=== PATIENT | female | born 1985 | race African-American/Black ===

== ENCOUNTER 2022-05-14 00:47 | Day surgery (SDC) | payer BC, SELFPAY ==
[2022-04-16 13:04] VITALS: BMI 35.5
--- NOTE | 2022-04-16 13:26 | PC.NURSE ---
Report to the Outpatient Waiting Room, entrance under the green pavilion located off [facility], at 0600 on 04-23-2022. OR Time: 0730. - You and your visitor will be asked a series of questions to screen for COVID 19 for your protection. - Only one visitor is allowed at this time. - The patient visitor is requested to leave or wait in car when not with patient. - A mask is required within the hospital. Patients may have clear liquids (water, carbonated beverages, clear teas, apple juice) until 3 hours prior to surgery with a maximum of 20 ounces. 0430 - No food from midnight until time of surgery - Infants may have breast milk until 4 hours before surgery, infant formula 6 hours prior to surgery. - Children will be allowed to drink immediately following surgery. If applicable, please bring a bottle or sippy cup to assist with drinking. Juice, water, soda, and popsicles are readily available. For infants on formula, please bring formula the day of surgery. Pacifiers are allowed. Take the following medications with a SIP of water the morning of surgery: None Bring inhaler Medications to discontinue per physician: N/A Please no make-up, nail pitcairn islander, hairspray, perfume, deodorant, or body powder the day of surgery. No jewelry (including any body piercings) or valuables the day of surgery, leave them at home. Please take a shower or bath the night before, or the morning of, surgery with an antibacterial soap. Wear comfortable, loose fitting clothing. Children are encouraged to wear pajamas. - Jewelry must be removed prior to entering the operating room. Rings and piercings that are not removed may be cut off. - The hospital will not accept responsibility for valuables. - Please leave all valuables, including medications, at home the day of surgery. If you are going home after surgery, a licensed substitute bus driver must drive you home. - NO public transportation without another adult. - We recommend that an adult stay with you for 24 hours following discharge. - We also recommend that you do not drive, make important decision, drink alcoholic beverages, or take any drugs that were not prescribed by your health care provider for at least 24 hours after your discharge time. For Pediatric surgeries, we recommend two adults accompany the child home (only one inside the building at this time). Follow any additional instructions given to you from your surgeon. If you or anyone in your household have experienced Covid symptoms in the past week, please notify your surgeon or the nurse liaison at the phone number below for possible testing. Telephone instructions given to Minerva Carroll and asked if any additional questions and then verbalized understanding. Patient advised to call surgeon office or pre surgery nurse liaison [phone] if any additional questions.
--- NOTE | 2022-05-10 14:48 | PC.NURSE ---
Report to the Outpatient Waiting Room, entrance under the green pavilion located off [facility], at time _0600 on date 05/14/22 . OR Time: __729 . - You and your visitor will be asked a series of questions to screen for COVID 19 for your protection. - Only one visitor is allowed at this time. - The patient visitor is requested to leave or wait in car when not with patient. - A mask is required within the hospital. Patients may have clear liquids (water, carbonated beverages, clear teas, apple juice) until 3 hours prior to surgery with a maximum of 20 ounces. - No food from midnight until time of surgery - Infants may have breast milk until 4 hours before surgery, infant formula 6 hours prior to surgery. - Children will be allowed to drink immediately following surgery. If applicable, please bring a bottle or sippy cup to assist with drinking. Juice, water, soda, and popsicles are readily available. For infants on formula, please bring formula the day of surgery. Pacifiers are allowed. Take the following medications with a SIP of water the morning of surgery: ___ALBUTEROL INHALER Medications to discontinue per physician N/A Date to take last dose N/A Please no make-up, nail danish, hairspray, perfume, deodorant, or body powder the day of surgery. No jewelry (including any body piercings) or valuables the day of surgery, leave them at home. Please take a shower or bath the night before, or the morning of, surgery with an antibacterial soap. Wear comfortable, loose fitting clothing. Children are encouraged to wear pajamas. - Jewelry must be removed prior to entering the operating room. Rings and piercings that are not removed may be cut off. - The hospital will not accept responsibility for valuables. - Please leave all valuables, including medications, at home the day of surgery. If you are going home after surgery, a licensed bobcat driver/labor must drive you home. - NO public transportation without another adult. - We recommend that an adult stay with you for 24 hours following discharge. - We also recommend that you do not drive, make important decision, drink alcoholic beverages, or take any drugs that were not prescribed by your health care provider for at least 24 hours after your discharge time. For Pediatric surgeries, we recommend two adults accompany the child home (only one inside the building at this time). Follow any additional instructions given to you from your surgeon. If you or anyone in your household have experienced Covid symptoms in the past week, please notify your surgeon or the nurse liaison at the phone number below for possible testing. Telephone instructions given to __JACKSON and asked if any additional questions and then verbalized understanding. Patient advised to call surgeon office or pre surgery nurse liaison [phone] if any additional questions.
--- NOTE | 2022-05-10 14:50 | PC.NURSE ---
PT STATES NO CHANGE IN HEALTH SINCE PREOP INTERVIEW ON 04/16/22 EXCEPT POSITIVE COVID DX. PT STATES IS WELL NOW. PREOP INSTRUCTIONS GIVEN TO PT
--- NOTE | 2022-05-13 17:20 | P.HP_ITS ---
H&P: HPI History of Present Illness Date/Time: 05/13/22 17:20 Chief Complaint: septal perforation crusting Narrative: patient presents for planned surgical procedure no change in symptoms no change in history Review of Systems Review of Systems: All systems reviewed & are unremarkable except as noted in HPI and below PMFSH Family History Family History Mother Alcoholism Lung cancer Depression Grandparent Diabetes mellitus Hypertension Social History Social History Smoking status: Never smoker Second hand tobacco smoke exposure: No Alcohol intake: never Substance use: never Substance use type: does not use Living arrangements: with family Spiritual care concerns: No Meds Home Medications and Allergies Home Medications Medication Instructions Recorded Confirmed Type albuterol sulfate 90 mcg/actuation 1 puff inhalation Q4H PRN 10/05/21 05/10/22 History aerosol inhaler Shortness Of Breath Or Wheezing Allergies Allergy/AdvReac Type Severity Reaction Status Date / Time cyclobenzaprine Allergy Intermediate Itching Verified 05/10/22 14:47 tramadol Allergy Intermediate Itching Verified 05/10/22 14:47 Exam Narrative: normal ENT exam anterior based septal perforation Assessment and Plan Assessment and plan (1) Nasal crusting: Code(s): J34.89 - Other specified disorders of nose and nasal sinuses Status: Acute Assessment and Plan: plan is for the OR endoscopic assisted closure of nasal septal perforation likely anterior ethmoidal flap. Will need endoscopic set up no micro debrider as will need endoscopic needle tip Bovie extended. Will need lidocaine Afrin- soaked pledgets and sinus instruments. Risks were discussed including 50-80% chance of failure postoperative crusting bleeding need for weeks of splint placement. Patient voiced understanding and agreed. (2) Nasal septal perforation: Code(s): J34.89 - Other specified disorders of nose and nasal sinuses Status: Acute
[2022-05-14] VITALS (11 sets, daily range): BP systolic 119–160; BP diastolic 72–100; PULSE 81–101; RESP 16–20; TEMP 36.3–36.6; O2SAT 95–100
[2022-05-14] MEDS: ACETAMINOPHEN 500 MG TABLET 1000 MG PO (06:45)
[2022-05-14] MEDS: LACTATED RINGERS 1,000 ML 30 ML IV CONT ×2 (06:56→09:17)
--- NOTE | 2022-05-14 07:05 | WPDANESEPPF ---
Anes - Initial Pre Proc Eval Procedure: Operation Date: 05/14/22 07:30 Proposed Procedures p Repair Septal Perforation - Angel Navarrete MD Date/Time: 05/14/22 07:05 Surgeon: Angel Navarrete MD Pre Op Diagnosis: Septal Perforation Patient Data Age: 36 Gender: F Height: 1.68 m Weight: 102.7 kg Last Vital Signs Temp 36.6 C 05/14/22 06:37 Pulse 81 05/14/22 06:37 Resp 16 05/14/22 06:37 BP 141/92 H 05/14/22 06:37 Pulse Ox 100 05/14/22 06:37 O2 Del Method Room Air 05/14/22 06:37 Allergies Allergy/AdvReac Type Severity Reaction Status Date / Time cyclobenzaprine Allergy Intermediate Itching Verified 05/14/22 06:43 tramadol Allergy Intermediate Itching Verified 05/14/22 06:43 Home Medications Medication Instructions Recorded Confirmed Type albuterol sulfate 90 mcg/actuation 1 puff inhalation Q4H PRN 10/05/21 05/14/22 History aerosol inhaler Shortness Of Breath Or Wheezing Patient hx anesthesia problems: none Family hx anesthesia problems: none Results Review: All pre-operative results and documents have been reviewed as part of the pre-operative evaluation. [facility] Surgical History Surgical History (Updated 05/14/22 @ 07:06 by Vance Rosa MD) H/O sinus surgery Family History Family History Mother Alcoholism Lung cancer Depression Grandparent Diabetes mellitus Hypertension Social History Social History Smoking status: Never smoker Second hand tobacco smoke exposure: No Alcohol intake: never Substance use: never Substance use type: does not use Living arrangements: with family Spiritual care concerns: No Anes - Eval Final PreProcedure Day of Procedure 05/14/22 07:05 Patient weight: obese Heart: regular rate and rhythm Lungs: clear to auscultation Airway: Mallampati scale class 1 Neurological: alert and oriented Last oral intake: >/= 8 hours ASA classification: II Emergent: no Anesthetic plan: proceed Anesthesia type and monitoring: general ETT and standard monitoring Results Review: All pre-operative results and documents have been reviewed as part of the pre-operative evaluation. Informed Consent: The patient's anesthetic plan and its attendant risks and benefits were discussed with the patient/family/POA. Questions were solicited and answers provided to the satisfaction of the patient/family/POA.
[2022-05-14] MEDS: ceFAZolin 2 GM/D5W 50 ML 2 GM/50 ML BAG IVPB (07:22)
--- NOTE | 2022-05-14 07:22 | WPDHPUPDATE1 ---
History and Physical Update Update Date/Time: 05/14/22 07:22 History and Physical has been reviewed, including an updated exam of the patient. There are NO changes in the patient's condition. Risks, benefits, and alternatives have been discussed and questions answered. Patient agrees to proceed with procedure.
[2022-05-14] MEDS: OXYMETAZOLINE HCL 0.05% NAS 15 ML BTL (*BKC) 1 SPRAY NASAL (07:37)
[2022-05-14] MEDS: MUPIROCIN 2% OINT 22 GM TUBE 1 APPLIC EACH NARE (09:02)
[2022-05-14] MEDS: LIDO 1%/EPINEPHRINE/PF 1:200,000 30 ML VIAL XX (09:03)
--- NOTE | 2022-05-14 09:31 | W.PM.PROC2 ---
Procedure Note - Detailed Date of Procedure 05/14/22 Pre-op Diagnosis Septal Perforation Post-op Diagnosis Same Procedure Performed Repair of septal perforation of right-sided anterior ethmoidal artery nasal septal flap closure Surgeon Angel Navarrete MD Anesthesia General Indications See above Findings About 7 mm perforation at widened to about 1 cm closed with right-sided anterior ethmoidal artery flap Description of Procedure Patient identified consent verified. Patient brought operating room. Time-out performed. General anesthesia induced. Endotracheal tube secured placed properly secured taped left lower lip. Patient prepped and draped for for mentioned procedure. Second time-out performed. Afrin-soaked pledgets placed allowed to sit for 5 minutes then removed. Caudal right-sided deviation very anterior perforation nearly abutting the squamous perforation the squamous portion the septum. About 7 mm AP diameter 6 mm cranial caudal diameter. Decision was made to use right-sided flap for reconstruction. Using needle-tip endoscopic Bovie electrocautery at a setting of 10 a vertical incision was made from the skull base down to the floor about 1 cm posterior to the insertion of the middle turbinate this was then carried into the inferior meatus and anteriorly as it rounded to the anterior portion of the perforation a taking great care to not violate the squamous mucosa squamous epithelium. Incision was then carried from about the anterior portion or head of the middle turbinate from a moving anteriorly cranially to caudal touching the posterior inferior portion of the perforation. And otherwise was then created from the superior portion of the perforation diagonal posteriorly and superiorly eventually touching the 2nd. The mucosa between the 2nd and 3rd lines was removed. The flap was then elevated using suction elevator. The flap was then rotated was able to be rotated outside of the nose actually sewed obviously cover the perforation. Perforation was then rimmed with microdebrider perforation was then tacked or sutured anteriorly using 250 sutures and then sutured in a quilting fashion with a 5 0 fast gut suture providing excellent contact. Orozco splints were then gently placed after endoscopically cleaning the bilateral nasal passages.. Orozco splints were covered in mupirocin as well. They were sutured anterior to the operative site using a 3-0 mattressed nylon suture. This marked end of the procedure. Total blood loss about 25 cc. I performed all dictated portions of the procedure. No immediate complications. Patient taken to PACU after being given Anesthesiology. Estimated Blood Loss 25 Packing Yes (Orozco splints) Pathology None sent Complications No immediate complications Condition Stable Disposition PACU
[2022-05-14] MEDS: ONDANSETRON INJ 4 MG/2 ML VIAL IV PUSH (11:02)
--- NOTE | 2022-05-14 13:08 | SUR.PHASEII ---
pt meets discharge criteria and is getting dressed.
== END 2022-05-14 13:15 | disposition home or self-care (01) ==
PROVIDERS: PCP Internal Medicine; Visit Provider Otolaryngology
PROC: (CPT 30520; principal; 2022-05-14 07:30)
DX: J34.89 Other specified disorders of nose and nasal sinuses (principal); Z79.51 Long term (current) use of inhaled steroids; E66.9 Obesity, unspecified; Z68.36 Body mass index [BMI] 36.0-36.9, adult
CPT/HCPCS: 30630; A9270; J0330; J0690; J1100; J2250; J2405; J2704; J3010; J7120